=== PATIENT | male | born 1945 | race Caucasian/White ===

== ENCOUNTER → 2016-05-23 | Day surgery (SDC) | payer BC, OTHER ==
[~2016-05-23] MED LIST: ASPI81 PO; BUPIVACAINE/EPINEPHRINE 0.25% PF 30 ML VIAL ONE; CARD240C6 PO; IBUP600T26 PO; LACTATED RINGER'S 1000 ML INJ 1,000 ML ONE; METO100T PO; MIDAZOLAM HCL 2 MG/2 ML VIAL ONE; ONDANSETRON HCL 4 MG/2 ML VIAL IV PUSH ONE; ORPH100T PO; PROPOFOL 200 MG/20 ML AMP IV ONE; ROSU10 PO; ceFAZolin 2 GM PREMIX 50 ML ONE
--- NOTE | 2016-05-23 10:13 | TN ---
cc: LEONOR JOYCE M.D. DATE OF SURGERY: 05/23/2016 PREOPERATIVE DIAGNOSES Bilateral inguinal hernia and umbilical hernia. POSTOPERATIVE DIAGNOSES Bilateral inguinal hernia and umbilical hernia, bilateral direct inguinal hernia. PROCEDURE Laparoscopic repair bilateral inguinal hernia with mesh, umbilical hernia repair. SURGEON Dr. Leonor Joyce. COUNSELING SERVICES MANAGER Roxanne. ANESTHESIA General. INDICATIONS Very pleasant 70-year-old gentleman with significant past medical history of heart disease on Eliquis, who presents with increasing size right inguinal hernia that has been present for many years. He has pain occasionally and associated ED. He was interested in pursuing operative repair of his hernias. He had incidentally discovered left and umbilical hernias. INTRAOPERATIVE FINDINGS Bilateral direct inguinal hernia defects, larger on the right than the left. A 2 cm umbilical hernia defect. ESTIMATED BLOOD LOSS Estimated blood loss less than 5 mL. DESCRIPTION OF PROCEDURE IN DETAIL The patient was identified as Andrés King, taken to the operating room and placed in the supine position. Sequential compression devices were placed on bilateral lower extremities. Following induction of adequate general anesthesia the patient's lower abdomen was prepped and draped in usual sterile fashion with Betadine. A time-out procedure was performed. Following completion of time-out procedure to everyone's satisfaction within the room, proposed infraumbilical transverse incision was made with a marking pen, infiltrated with local anesthetic. Anesthetic was placed in and around the umbilicus. The incision was carried out with scalpel and umbilical skin was lifted off of the small amount of herniated preperitoneal fatty tissue using Metzenbaum scissor. The anterior fascia was circumferentially cleared and the anterior fascia overlying the left rectus muscle was cleared at its medial border. The medial border was incised with a scalpel allowing for development of preperitoneal plane with surgeon's finger directed towards the pubic symphysis. With the patient in slight Trendelenburg position the preperitoneal dissecting balloon was placed in preperitoneal space under direct laparoscopic view, inflated to a total of approximately 40 pumps. This allowed for identification of pubic symphysis, bilateral Luis Manuel's ligaments, inferior epigastric vessels and a direct hernia pseudo sac on the left side. The balloon was desufflated and removed and the structural balloon trocar was placed in preperitoneal space, its balloon inflated with C02 insufflation until a level of 11 mmHg ensued. Two infraumbilical midline 5 mm trocars were then placed in preperitoneal space under direct laparoscopic view after incision of skin with scalpel. The pseudo sac was completely released on the left side from adherent preperitoneal fatty tissue. A photograph was taken. The pseudo sac was tacked to the anterior Luis Manuel's ligament with a pro-tack device. Blunt dissection lateral and posterior to the spermatic cord was then performed and adherent peritoneum was reduced to the base of spermatic cord using blunt graspers. In doing so there was very thin sac opened and this was closed with 0-PDS Endoloop. A 4 x 6 inch piece of atrium ProLite mesh was cut and the anterolateral slit placed around the spermatic cord and tacked in position with the pro-tack device. Tacks were placed to approximate the anterolateral slit along the anterior border of Luis Manuel's ligament and superior to the direct hernia defect. 2 x 5 inch piece of mesh was then placed over the anterolateral slit and held in position with a single tack superior laterally and a single tack over Luis Manuel's ligament. An additional tack was placed superior to the direct hernia defect. Photograph was taken of the completed repair and attention was turned to the right side. Similar blunt dissection ensued a much larger direct hernia defect, pseudo sac was released from preperitoneal fatty tissue. A photograph was taken of the defect. The pseudo sac was tacked to the anterior border of Luis Manuel's ligament with a pro-tack device. Blunt dissection lateral and posterior to the spermatic cord was performed and the adherent peritoneum was reduced to the base of the spermatic cord, in doing so again a small defect was created which was controlled with 0-PDS Endoloop. There was no evidence of spermatic cord lipoma on either side. 4 x 6 inch piece of atrium ProLite mesh was cut and the anterolateral slit placed around the spermatic cord and tacked in position with the pro-tack device. Tacks were placed to approximate the anterolateral slit on the anterior border of Luis Manuel's ligament and superior to the direct hernia defect. A 2 x 5 inch piece of the mesh was placed across the anterolateral slit and held in position with the pro-tack device, placing a single tack superior laterally, single tack on Luis Manuel's ligament and an additional tack superior to the direct hernia defect. Photograph was taken of the completed repair. Remaining local anesthetic was placed in preperitoneal space. Trocars were removed under direct visualization. There was no evidence of bleeding from trocar sites. The preperitoneal space was desufflated through the infraumbilical port, was then removed. Anterior rectus fascial incision was closed with running 2-0 Vicryl suture. Small amount of CO2 which leaked into the peritoneal cavity was decompressed through the umbilical hernia sac using a hemostat. The umbilical hernia defect was then approximated with interrupted inverted 0 Prolene sutures. The umbilicus was reformed with 2-0 Vicryl and skin incisions were approximated with 4-0 Monocryl subcuticular sutures. Dressings were applied with Mastisol, half-inch brown Steri-Strips, gauze and Tegaderm. The patient tolerated the procedure without apparent complication. Sponge, needle and instrument counts were correct at the end of the case. MD ANGEL Rueda/MIGUEL /9:23 AM /9:54 AM
== END | disposition home or self-care (01) ==
LOC: ESDC 06:44
PROVIDERS: ATTEND Surgery Trauma Surgery
DX: K40.20 Bilateral inguinal hernia, without obstruction or gangrene, not specified as recurrent (principal); K42.9 Umbilical hernia without obstruction or gangrene
CPT/HCPCS: 00750; 00840; 49585; 49650; C1727; C1781; J0690; J2250; J2405; J3010; J7120